=== PATIENT | female | born 1970 | race Caucasian/White ===

== ENCOUNTER → 2016-08-10 | Outpatient (CLI) | payer BC ==
--- NOTE | 2016-08-12 12:49 | MRI ---
EXAM DESCRIPTION: Brain w/wo Contrast CLINICAL HISTORY: 46 years, Female, D35.2 COMPARISON: February 02, 2016 TECHNIQUE: Multiplanar multi sequence images of the brain were obtained with and without gadolinium contrast including dedicated pre and postcontrast small field of view thin section pituitary imaging. FINDINGS: Again seen is a tiny 2 mm focus of decreased signal in the posterior pituitary best seen on sagittal postcontrast imaging and consistent with a tiny microadenoma, stable from the prior exam. No new pituitary lesion is seen. There is no pituitary enlargement or suprasellar lesion. The pituitary infundibulum is midline, and the optic chiasm is unremarkable. The ventricles are of normal size and configuration. No alvarado or white matter signal abnormalities are noted in the cerebral hemispheres. There is no posterior fossa lesion. Postcontrast images show only physiologic vascular enhancement. Visualized paranasal sinuses and orbits are unremarkable. IMPRESSION: Probable 2 mm pituitary microadenoma, stable from January,. No additional intracranial abnormality. Electronically signed by: Los Crandall MD 08/12/2016 12:48 PM CDT
== END | disposition home or self-care (01) ==
LOC: MRI 07:56
PROVIDERS: ATTEND Internal Medicine Endocrinology, Diabetes & Metabolism
DX: D35.2 Benign neoplasm of pituitary gland (principal)

== ENCOUNTER → 2018-03-12 | Outpatient (CLI) | payer BC ==
--- NOTE | 2018-03-12 10:50 | MRI ---
EXAM DESCRIPTION: Brain w/wo Contrast: Magnetic Resonance Imaging. CLINICAL HISTORY: [place] COMPARISON: Brain with and without contrast 08/10/2016. TECHNIQUE: Multiplanar, high-field MRI, multiple conventional sequences, without and with gadolinium IV contrast. No adverse reactions. Multiple axial diffusion sequences. FINDINGS: Again noted is a small 1.5 mm filling defect in the posterior midline pituitary gland, consistent with a pituitary microadenoma. Smaller in the AP dimension than on the prior study. No new filling defects in the pituitary gland with homogeneous enhancement. Infundibulum unremarkable with no mass effect. No suprasellar mass, or mass or abnormal enhancement involving the optic chiasm, optic nerves or optic tracts. Normal FLAIR and T2-weighted signal in the periventricular white matter and alvarado-white matter junctions of the cerebral hemispheres. . Normal signal in the bilateral basal ganglia. No hemorrhage, no cerebral edema, no mass-effect. Normal contrast enhancement. Normal signal in the brainstem and cerebellar hemispheres. No hemorrhage, no cerebral edema, no mass-effect. Normal contrast enhancement. Concordance of the diffusion and non-diffusion sequences with no evidence of acute or subacute infarction. Cortical sulci, ventricles, and other CSF spaces, and the subdural spaces are normally configured for patients age.. No effacement or displacement. No midline shift. No extra-axial hemorrhage. Normal contrast enhancement. Normal flow signal void in the major vessels of the [place], and the venous sinuses. IACs are symmetric bilaterally. Normal signal in the bilateral mastoid air cells. No mass effect in the bilateral Cerebellopontine angles. Normal contrast enhancement. Base of the cerebellar tonsils is at the level of the foramen magnum. Normal T2-weighted signal in the included paranasal sinuses. The bony calvarium is intact. IMPRESSION: 1. Stable or slightly smaller pituitary microadenoma in the posterior midline pituitary, compared to 08/10/2016. 2. Remainder of the MRI brain examination is unremarkable on the precontrast and postcontrast images. Electronically signed by: Alf Beltran MD 03/12/2018 10:49 AM [facility]
== END ==
LOC: MRI 06:56
DX: E22.9 Hyperfunction of pituitary gland, unspecified (principal); D35.2 Benign neoplasm of pituitary gland